=== PATIENT | female | born 1995 | race Two or more races ===

== ENCOUNTER 2016-08-03 08:35 | Emergency (ER) | payer OTHER, BC ==
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
[2016-08-03 09:17] VITALS: BP 113/72
== END 2016-08-03 09:05 | disposition home or self-care (01) ==
LOC: ER 08:35
DX: S00.03XA Contusion of scalp, initial encounter (principal); S16.1XXA Strain of muscle, fascia and tendon at neck level, initial encounter; V89.2XXA Person injured in unspecified motor-vehicle accident, traffic, initial encounter
CPT/HCPCS: 99283